=== PATIENT | female | born 1955 | race Caucasian/White ===

== ENCOUNTER 2020-01-01 19:00 | Observation (INO) | payer OTHER ==
[~2020-01-01] VITALS: Ht 152.4 cm; Wt 60.8 kg
[2020-01-01 19:35] VITALS: Ht 152.4 cm; Wt 60.8 kg
[2020-01-01 20:18] LABS: BASOPHIL % 0.3 % (0-2); PLATELET COUNT 263 x10^3mcL (130-400); RED CELL DISTRIBUTION WIDTH 13.3 % (11.5-14.5)
[2020-01-01 20:51] LABS: CARBON DIOXIDE 27.6 mmol/L (21-32); CHLORIDE SERUM 105 mmol/L (98-107); CREATININE SERUM 0.7 mg/dL (0.6-1.0); GFR1 > 60 mL/min; GLUCOSE SERUM 115 mg/dL (74-106); POTASSIUM SERUM 3.9 mmol/L (3.5-5.1); SODIUM SERUM 140 mmol/L (136-145)
[2020-01-01 20:57] LABS: ALKALINE PHOSPHATASE 99 U/L (46-116); ALT/SGPT 30 U/L (14-59); AMYLASE 76 U/L (25-115); AST/SGOT 23 U/L (15-37); BILIRUBIN TOTAL 0.32 mg/dL (0.20-1.00); LIPASE 216 IU/L (73-393)
[2020-01-01 20:58] LABS: TOTAL PROTEIN, SERUM 8.5 g/dL (6.4-8.2)
[2020-01-02 00:16] VITALS: BP 160/79
[2020-01-02 04:35] VITALS: BP 109/58
[2020-01-02 07:18] LABS: BASOPHIL % 0.3 % (0-2); PLATELET COUNT 241 x10^3mcL (130-400); RED CELL DISTRIBUTION WIDTH 13.1 % (11.5-14.5)
[2020-01-02 08:06] VITALS: BP 129/69
[2020-01-02 10:31] VITALS: BP 129/69
[2020-01-02 10:35] LABS: CALCIUM 8.7 mg/dL (8.5-10.1); CARBON DIOXIDE 25.1 mmol/L (21-32); CHLORIDE SERUM 109 mmol/L (98-107); CREATININE SERUM 0.7 mg/dL (0.6-1.0); GFR1 > 60 mL/min; GLUCOSE SERUM 84 mg/dL (74-106); POTASSIUM SERUM 4.3 mmol/L (3.5-5.1); SODIUM SERUM 145 mmol/L (136-145)
== END 2020-01-02 11:43 | disposition home or self-care (01) ==
LOC: ED 19:00 → DU 22:45
PROVIDERS: Emergency Medicine; ADMIT Internal Medicine
DX: M94.0 Chondrocostal junction syndrome [Tietze] (principal)
CPT/HCPCS: 83880; G0378; J2270; J7030; Q0092